=== PATIENT | female | born 1980 | race Caucasian/White ===

== ENCOUNTER 2017-03-20 06:30 | Observation (INO) | payer MEDICAID ==
[2017-03-20 06:30] VITALS: O2SAT 98
[2017-03-20] MEDS ORDERED: IOHEXOL 350 MG/ML 10 ML VIAL (for RAD DIAG) IVCONTRAST ONE (06:34)
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
[2017-03-20 06:52] LABS: I-STAT SODIUM 143 MMOL/L (138-146)
[2017-03-20 06:55] LABS: AUTOMATED NEUTROPHIL # 7.4 TH/MM3 (1.8-7.7); BASOPHIL # 0.3 TH/MM3 (0-0.2); BASOPHIL % 2.3 % (0.0-2.0); EOSINOPHIL # 0.2 TH/MM3 (0-0.4); EOSINOPHIL % 1.4 % (0.0-4.0); HEMATOCRIT 40.3 % (35.0-46.0); HEMO FLAGS DIFF FINAL; LYMPH % 31.2 % (9.0-44.0); LYMPHOCYTE # 3.9 TH/MM3 (1.0-4.8); MEAN CELL VOLUME 88.2 FL (80.0-100.0); MONO % 6.4 % (0.0-8.0); NEUT % 58.7 % (16.0-70.0); PLATELET COUNT 292 TH/MM3 (150-450); RED BLOOD COUNT 4.57 MIL/MM3 (4.00-5.30); RED CELL DISTRIBUTION WIDTH 13.4 % (11.6-17.2); WHITE BLOOD COUNT 12.7 TH/MM3 (4.0-11.0)
[2017-03-20 07:05] VITALS: BP 125/87; PULSE 100; RESP 18; TEMP 97.8; O2SAT 99
[2017-03-20 07:05] LABS: APTT (PATIENT) 29.3 SEC (24.3-30.1); PROTHROMBIN TIME - PATIENT 10.9 SEC (9.8-11.6)
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
[2017-03-20 07:15] LABS: ALCOHOL 107 MG/DL (0-5)
[2017-03-20 07:16] LABS: BETA HCG QUANT LESS THAN 1 MIU/ML (0-5)
[2017-03-20] MEDS ORDERED: ACETAMINOPHEN/HYDROcodone 325 MG/5 MG TAB PO PRN ×2 (07:45)
[2017-03-20] MEDS ORDERED: SODIUM CHLORIDE 0.9% FLUSH 10 ML FLUSH IV FLUSH PRN (07:45)
[2017-03-20] MEDS ORDERED: ENALAPRILAT 1.25 MG/ML VIAL IV PUSH PRN (07:45)
[2017-03-20] MEDS ORDERED: ONDANSETRON HCL 4 MG/2 ML VIAL IV PUSH PRN (07:45)
[2017-03-20] MEDS ORDERED: LACTULOSE SYRUP 20 GM/30 ML CUP PO PRN (08:00)
[2017-03-20] MEDS ORDERED: SODIUM CHLOR 0.9% 1000 ML INJ 1,000 ML IV SCH (08:00)
[2017-03-20] MEDS ORDERED: MULTIVITAMIN TAB PO SCH (09:00)
[2017-03-20] MEDS ORDERED: TETANUS/DIPHTHERIA TOXOID ADULT 0.5 ML VIAL IM ONE (09:00)
[2017-03-20] MEDS ORDERED: THIAMINE HCL 100 MG TAB PO SCH (09:00)
[2017-03-20] MEDS ORDERED: FOLIC ACID 1 MG TAB PO SCH (09:00)
[2017-03-20] MEDS ORDERED: DOCUSATE SODIUM 50 MG/SENNA 8.6 MG TAB PO SCH (09:00)
[2017-03-20 11:45] VITALS: BP 122/81; TEMP 97.8
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
== END 2017-03-20 12:18 | disposition home or self-care (01) ==
LOC: NEPI 06:30 → NEDA 06:58 → UNDOADMIN 06:58 → EDBD 06:58 → NEDA 07:51 → INTOOBSV 07:51 → UNDODISIN 12:18
PROVIDERS: ADMIT Surgery; ATTEND Surgery
DX: S41.012A Laceration without foreign body of left shoulder, initial encounter (principal); J94.2 Hemothorax; X99.8XXA Assault by other sharp object, initial encounter
CPT/HCPCS: 71010; 71260; 80307; 82435; 82565; 82947; 84132; 84295; 84520; 84702; 85025; 85610; 85730; 86850; 86900; 86901; 96360; 99291; G0378; J7030; Q9967; G0390

== ENCOUNTER 2017-03-22 12:52 | Emergency (ER) | payer SELFPAY ==
[~2017-03-22] VITALS: Ht 162.6 cm; Wt 90.0 kg
[2017-03-22 12:54] VITALS: BP 143/86; PULSE 86; RESP 14; TEMP 99; O2SAT 97
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
== END 2017-03-22 14:21 | disposition home or self-care (01) ==
LOC: NEPD 12:52
DX: Z51.89 Encounter for other specified aftercare (principal); I10 Essential (primary) hypertension
CPT/HCPCS: 71010; 99283